=== PATIENT | female | born 1995 | race Caucasian/White ===

== ENCOUNTER 2024-05-04 17:34 | Emergency (ER) | payer BC, SELFPAY ==
[2024-05-04 17:35] VITALS: BP 137/85
--- NOTE | 2024-05-04 17:42 | ED.GENMED ---
ED Provider Triage
<Francisco Javier Ledesma PA-C - Last Filed: 05/04/24 17:44>
-
Patient seen by provider in Triage?: Seen in Triage
29-year-old female with 3 to 4 days worth of swelling in both sides of her neck that she noticed more so in the morning. She denies sore throat fever or shortness of breath. She denies difficulty swallowing.
On exam there is no obvious swelling noted on her neck at triage. Vital signs are stable.
Ordered basic labs. Patient received a medical screening exam by healthcare provider through triage
History of Present Illness
<Francisco Javier Ledesma PA-C - Last Filed: 05/04/24 17:44>
General
Chief Complaint: Throat Problem
Time Seen by Provider: 05/04/24 18:39
<ODILON Infante - Last Filed: 05/04/24 22:39>
General
Source: patient and other (Friend with patient)
Exam Limitations: none
History of Present Illness
History of Present Illness:
This is a 29 year old female that comes in with c/o neck swelling. States that for the past 3 days her neck is swelling. States that when she lays down her neck will swelling and when she gets up it take a couple hours for this to go away. States
that she laid down in bed again and the same thing happened. Friend with patient states that her Mom is a Oncologist/Account Manager Sales Representative and she was concerned that this could be a blood clot. States that she has had a headache and some diarrhea. Denies any
fever, chills, chest pain, SOB, abd pain, nausea, vomiting, dizziness, urinary burning.
Past History
<Francisco Javier Ledesma PA-C - Last Filed: 05/04/24 17:44>
Past History
ED Past Medical History: Other (Unknown.)
Social History
Alcohol: Daily
Personal: Single
Living: with roommate
Employment: Not employed
<ODILON Infante - Last Filed: 05/04/24 22:39>
Past History
ED Past Medical History: Psychiatric (Anxiety, Depression, Panic disorder, ) and Other (Developmental delays, )
ED Past Surgical History: Gynecological (. ) and Other (Cyst removed form abd. )
Social History
Tobacco: Vaping
Alcohol: Daily (Beer 3 )
Personal: Single
Living: with roommate
Employment: Not employed
Review of Systems
<ODILON Infante - Last Filed: 05/04/24 22:39>
Review of Systems
All Other Systems: ROS reviewed and negative except as documented in HPI and ROS
Constitutional: Reports no symptoms; Denies fever or chills
EENT: Reports no symptoms
Respiratory: Denies cough or trouble breathing
Cardiac: Reports no symptoms; Denies chest pain
ABD/GI: Reports diarrhea; Denies abdominal pain, nausea or vomiting
: Reports no symptoms; Denies dysuria, frequency or urgency
Musculoskeletal: Reports other (Neck swelling, )
Skin: Reports no symptoms
Neurological: Reports headache; Denies dizzy
Psychiatric: Reports no symptoms
Phy Exam
<ODILON Infante - Last Filed: 05/04/24 22:39>
General Physical Exam
General Presentation: well appearing and no apparent distress
General age: appears stated age
General Skin: warm and dry
General Habitus: normal
General Mental: alert
General Hydration: appears well hydrated
ENT Exam
ENT Exam: TM's normal, pharynx normal and neck supple
Eye Exam
Eye Exam: EOMI
Cardiovascular Exam
Cardiovascular Exam: regular rate/rhythm, no edema, no murmur and normal peripheral pulses
Pulmonary Exam
Pulmonary Exam: lungs clear, no respiratory distress, no rales, chest non tender, no crackles, no rhonchi, no wheezing and no cough
Gastrointestinal Exam
Gastrointestinal Exam: normal bowel sounds, non tender, soft, no organomegaly, no pulsatile mass and non distended
Musculoskeletal Exam
Musculoskeletal Exam: full ROM and no edema
Skin Exam
Skin Exam: normal color, warm/dry, no rash and no petechia
Psychiatric Exam
Psychiatric Exam: normal mood/affect
Course
<Francisco Javier Ledesma PA-C - Last Filed: 05/04/24 17:44>
Orders/Labs/Results
Orders:
Orders
05/04/24 18:09
Complete Blood Count/With Diff Urgent
Comprehensive Metabolic Panel Urgent
Free T4 Urgent
HCG, Serum Qualitative Screen Urgent
Comment: ADD ON
Monotest Urgent
Comment: ADD ON
TSH Reflex To Free T4 Urgent
05/04/24 18:41
Add On- LAB Urgent
Tests Added?: mONO
05/04/24 19:27
US Periph Venous UPPER Ext Phong Urgent
Comment:
Reason For Exam: Neck swelling, Right arm slightly larger then left
05/04/24 19:50
CT Head & Neck Angio W/wo IV Urgent
Comment:
Reason For Exam: Sweling of the neck, Headache,
05/04/24 20:00
Add On- LAB Urgent
Tests Added?: hcg qual
05/04/24 21:45
CR Chest - 2 Views Urgent
Comment:
Reason For Exam: Neck swelling
Abnormal Lab Results
05/04/24
18:09
MCHC 32.9 L g/dL
(33.0-37.0)
RDW 19.0 H %
(11.5-14.5)
Glucose 102 H mg/dl
(70-99)
TSH (Reflex) 6.19 H uIU/ml
(0.47-4.68)
05/04/24 18:09
05/04/24 18:09
Vital Signs
Initial and Last Documented VS:
Initial Vital Signs
Temp Pulse Resp BP Pulse Ox
97.4 F 99 16 137/85 100
05/04/24 17:35 05/04/24 17:35 05/04/24 17:35 05/04/24 17:35 05/04/24 17:35
Last Documented Vital Signs
Temp Pulse Resp BP Pulse Ox
98.0 F 103 20 131/84 98
05/04/24 18:00 05/04/24 18:00 05/04/24 18:00 05/04/24 18:00 05/04/24 18:00
<ODILON Infante - Last Filed: 05/04/24 22:39>
Orders/Labs/Results
Orders:
Orders
05/04/24 18:09
Complete Blood Count/With Diff Urgent
Comprehensive Metabolic Panel Urgent
Free T4 Urgent
HCG, Serum Qualitative Screen Urgent
Comment: ADD ON
Monotest Urgent
Comment: ADD ON
TSH Reflex To Free T4 Urgent
05/04/24 18:41
Add On- LAB Urgent
Tests Added?: mONO
05/04/24 19:27
US Periph Venous UPPER Ext Phong Urgent
Comment:
Reason For Exam: Neck swelling, Right arm slightly larger then left
05/04/24 19:50
CT Head & Neck Angio W/wo IV Urgent
Comment:
Reason For Exam: Sweling of the neck, Headache,
05/04/24 20:00
Add On- LAB Urgent
Tests Added?: hcg qual
05/04/24 21:45
CR Chest - 2 Views Urgent
Comment:
Reason For Exam: Neck swelling
Abnormal Lab Results
05/04/24
18:09
MCHC 32.9 L g/dL
(33.0-37.0)
RDW 19.0 H %
(11.5-14.5)
Glucose 102 H mg/dl
(70-99)
TSH (Reflex) 6.19 H uIU/ml
(0.47-4.68)
05/04/24 18:09
05/04/24 18:09
Glucose nonfasting. TSH elevated at 6.19
Vital Signs
Initial and Last Documented VS:
Initial Vital Signs
Temp Pulse Resp BP Pulse Ox
97.4 F 99 16 137/85 100
05/04/24 17:35 05/04/24 17:35 05/04/24 17:35 05/04/24 17:35 05/04/24 17:35
Last Documented Vital Signs
Temp Pulse Resp BP Pulse Ox
98.0 F 103 20 131/84 98
05/04/24 18:00 05/04/24 18:00 05/04/24 18:00 05/04/24 18:00 05/04/24 18:00
<ODILON Infante - Last Filed: 05/04/24 22:39>
MDM/Problems Addressed
Differential Diagnosis Includes:
Upper arms DVT, Obstructive mass throat
MDM/Problems Addressed:
This is a 29 year old female that comes in with c/o swelling in the neck. States that when she lays down and then gets up her neck is swollen and this takes a few hours to go down and if she lays down again the swelling comes back. States that this
started 3 days ago.
Will check labs. CT neck and get Ultrasound bilateral upper arms.
Back into see patient and significant other. Significant others mother was also on the phone who is a retired Account Manager Sales Representative/Oncologist. Explained that her blood work is normal. There is some mild reversal of the Cervical lordosis that can be seen
with Muscle spasm and the CTA of the head and neck was negative for any acute process. There is bilateral few small lymphadenopathy. Will get Chest x-ray. If normal will discharge home.
Chronic conditions affecting care:
NA
Acute Exacerbation and/or Progression of Chronic Illness:
NA
<ODILON Infante - Last Filed: 05/04/24 22:39>
*Radiology
Radiology exam reviewed: radiology read reviewed (Head and neck CTA-NO acute intracranial pathology. NO acute pathology of the vasculature. Mild reversal of the normal cervical spinal lordosis. This can be seen with Muscular spasm. US bilateral
arms-No evidence of DVT of either upper extremitly. Bilateral neck Lymphadenopathy. ) and other (Chest- No acute disease of the chest. Minimal mild thoracic spine dextroscoliosis. )
*Pulse Oximetry
Patient hypoxic: no
*EKG
Interpreted by ED Provider?: NA
Rate: EKG- N/A
*Molded Goods Controls Operator Interpretation
Rate: Molded Goods Controls Operator- N/A
*Critical Care Note
Total Time (30-74mins, 75-104mins- exclusive of procedures): Not Applicable
ED Attending Note
<Francisco Javier Ledesma PA-C - Last Filed: 05/04/24 17:44>
-
Portions of this chart may have been created with voice recognition software.� Occasional wrong word or��sound alike� substitutions may have occurred due to the inherent limitations of voice recognition software.
Discharge Plan
Departure
Patient Disposition: Home (Routine Discharge)
Date of Disposition: 05/04/24
Time of Disposition: 22:34
Patient with high blood pressure during this ER visit?: Yes
Condition: Good
Covid-19: Not Applicable
Discharge Problem:
Neck swelling
Instructions: BLOOD PRESSURE
Prescriptions:
No Action
topiramate 25 MG tablet
50 mg PO DAILY Qty: 60 0RF
fluoxetine 10 MG capsule
10 mg PO DAILY Qty: 30 0RF
gabapentin 300 MG capsule
300 mg PO BID Qty: 60 0RF
topiramate 100 MG tablet
100 mg PO HS Qty: 30 0RF
olanzapine 5 MG tablet,disintegrating
10 mg PO HS Qty: 30 0RF
Referrals:
UNKNOWN - PT DOES,NOT KNOW [Family Provider] -
Activity Restrictions/Additional Instructions:
As discussed, your blood work is normal. Your CT shows bilateral neck lymphadenopathy that is felt to be reactive. There is some wall thickening of the sinus to suggest chronic sinusitis. The ultrasound of both arms is normal. There is a mild
cervical lordosis which can be seen with muscle spasm. Please follow up with the family doctor for further evaluation. Your Chest x-ray is normal. IF YOU HAVE DIFFICULTY SWALLOWING OR YOU HAVE ANY OTHER CONCERNS PLEASE RETURN TO THE EMERGENCY ROOM
Interventions
Interventions:
*Risk Screen - Suicide Last Done: 05/04/24 17:35
*General Assessment Last Done: 05/04/24 17:35
*ED COVID-19 Vaccine History Last Done: 05/04/24 17:35
ED-EENT Assessment Last Done: 05/04/24 18:30
ED- Pulmonary Assessment Last Done: 05/04/24 18:30
Discharge Date and Time
Print Language: MALAY
[2024-05-04 18:00] VITALS: BP 131/84
[2024-05-04 18:20] LABS: % Basophils 0.7 % (0-2); % Eosinophils 2.1 % (0-6); % Immature Granulocytes 0.2 % (0-0.5); % Lymphocytes 24.4 % (20.5-51.1); % Monocytes 5.8 % (1.7-9.3); % Neutrophils 66.8 % (42.2-75.2); Absolute Basophils 0.1 10^3/uL (0-0.2); Absolute Eosinophils 0.2 10^3/uL (0-0.7); Absolute Lymphocytes 2.3 10^3/uL (1.2-3.4); Absolute Monocytes 0.6 10^3/uL (0.1-0.6); Absolute Neutrophils 6.4 10^3/uL (1.4-6.5); Hemoglobin 12.5 g/dL (12.0-16.0); Mean Corp Hgb Conc. 32.9 g/dL (33.0-37.0); Mean Corpuscular Hgb 28.3 pg (27.0-31.0); Mean Platelet Volume 9.8 fL (7.4-10.4); Nucleated Red Blood Cells % 0 %; Platelet Count 330 10^3/uL (130-400); Red Blood Cell Count 4.42 10^6/uL (4.20-5.40); White Blood Cell Count 9.6 10^3/uL (4.8-10.8)
[2024-05-04 18:32] LABS: ALT (SGPT) 31 U/L (0-35); AST (SGOT) 31 U/L (14-36); Albumin 4.5 g/dl (3.5-5.0); Alkaline Phosphatase 58 U/L (38-126); Blood Urea Nitrogen 12 mg/dl (7-17); Calcium 9.6 mg/dl (8.4-10.2); Carbon Dioxide 23 mmol/L (22-30); Chloride 107 mmol/L (98-107); Glucose 102 mg/dl (70-99); Potassium 4.4 mmol/L (3.5-5.1); Sodium 141 mmol/L (135-145); Total Bilirubin 0.2 mg/dl (0.2-1.3); Total Protein 7.5 g/dl (6.3-8.2); eGFR > 60.00
[2024-05-04 19:04] LABS: TSH Reflex To Free T4 6.19 uIU/ml (0.47-4.68)
[2024-05-04 19:28] LABS: Monotest Negative (Negative)
[2024-05-04 19:54] LABS: Free T4 0.91 ng/dl (0.78-2.19)
[2024-05-04 20:45] LABS: HCG, Serum Qualitative Screen Negative
[2024-05-04 22:46] VITALS: BP 126/78
== END 2024-05-04 22:46 | disposition home or self-care (01) ==
LOC: EMR 17:34
PROVIDERS: Physician Assistant; EMERGENCY PHYSICIAN Emergency Medicine
DX: R22.1 Localized swelling, mass and lump, neck (principal); F17.290 Nicotine dependence, other tobacco product, uncomplicated
CPT/HCPCS: 99284; 70496; 70498; 71046; 80053; 84439; 84443; 84703; 85025; 86308; 93970; Q9967

== ENCOUNTER 2025-04-01 15:31 | Emergency (ER) | payer BC, SELFPAY ==
[2025-04-01 15:33] VITALS: BP 136/90
--- NOTE | 2025-04-01 20:08 | ED.SKININJ ---
HPI-Injury
General
Chief Complaint: Eye Problems
Source: patient
Exam Limitations: none
Time Seen by Provider: 04/01/25 19:51
History of Present Illness-Injury
Initial Injury comments:
29-year-old female presents with intermittent swelling to the periorbital area of the right eye that is been going on for about 2 weeks. It is associated with pain. She tried cold compresses. She notes a headache with this as well. She denies
any double vision or blurry vision. No fevers. No nausea or vomiting. No other complaints at this time
Past History
Past History
ED Past Medical History: Psychiatric (Anxiety, Depression, Panic disorder, ) and Other (Developmental delays, )
ED Past Surgical History: Gynecological (. ) and Other (Cyst removed form abd. )
Social History
Tobacco: Vaping
Alcohol: Daily (Beer 3 )
Personal: Single
Living: with roommate
Employment: Not employed
Phy Exam
Physical Exam
Physical Exam:
General: Well-appearing female no acute respiratory distress
HEENT normal cephalic pupils equal round reactive to light there is periorbital swelling of the right eye mainly superiorly and into the forehead on the right side no ptosis
Heart: Regular rate and rhythm
Lungs: Clear no wheeze
Skin: Subtle erythema to the right side of the forehead
Course
Orders/Labs/Results
Orders:
Orders
04/01/25 20:06
CT Orbits With Iv Contrast Urgent
Comment:
Reason For Exam: periorbital swelling right eye
04/01/25 20:24
Complete Blood Count/With Diff Urgent
Comprehensive Metabolic Panel Urgent
HCG, Serum Qualitative Screen Urgent
Comment: ADD ON
04/01/25 20:47
Add On- LAB Urgent
Tests Added?: hcg
Abnormal Lab Results
04/01/25
20:24
RBC 3.43 L 10^6/uL
(4.20-5.40)
Hgb 8.7 L g/dL
(12.0-16.0)
Hct 27.8 L %
(37.0-47.0)
MCH 25.4 L pg
(27.0-31.0)
MCHC 31.3 L g/dL
(33.0-37.0)
RDW 15.2 H %
(11.5-14.5)
Absolute Neuts (auto) 7.0 H 10^3/uL
(1.4-6.5)
Chloride 108 H mmol/L
(98-107)
Glucose 113 H mg/dl
(70-99)
AST 69 H U/L
(14-36)
ALT 75 H U/L
(0-35)
04/01/25 20:24
04/01/25 20:24
Vital Signs
Initial and Last Documented VS:
Initial Vital Signs
Temp Pulse Resp BP Pulse Ox
98.9 F 110 18 136/90 18
04/01/25 15:33 04/01/25 15:33 04/01/25 15:33 04/01/25 15:33 04/01/25 15:33
Last Documented Vital Signs
Temp Pulse Resp BP Pulse Ox
98.9 F 92 18 120/84 99
04/01/25 15:33 04/01/25 20:25 04/01/25 20:25 04/01/25 20:25 04/01/25 20:25
MDM/Problems Addressed
Differential Diagnosis Includes:
Periorbital swelling of the right eye. Consider stye or cellulitis versus septal cellulitis. No rash to suggest shingles.
Will check labs and CT.
*Pulse Oximetry
SaO2: 18
Patient hypoxic: no
*Critical Care Note
Total Time (30-74mins, 75-104mins- exclusive of procedures): Not Applicable
Update Note
Update Note:
CT of the orbits was reviewed and demonstrates dilation of the superior ophthalmic vein with surrounding inflammatory changes etiology unclear by CT. MRI versus MRA recommended for further detail. Discussed these findings with the patient and
offered admission for further investigation however she does not want to stay in the hospital. She states her symptoms been going on for 2 months she would rather follow-up with her family doctor. Think this is reasonable. Given the erythema and
swelling and some tenderness will cover for cellulitis. Will start on Keflex and have her apply warm compresses. Return precautions were given.
ED Attending Note
-
Portions of this chart may have been created with voice recognition software.� Occasional wrong word or��sound alike� substitutions may have occurred due to the inherent limitations of voice recognition software.
Discharge Plan
Departure
Patient Disposition: Home (Routine Discharge)
Date of Disposition: 04/01/25
Time of Disposition: 23:13
Patient with high blood pressure during this ER visit?: No
Discharge Problem:
Periorbital swelling
Instructions: Cellulitis around the eye
Prescriptions:
New
cephalexin 500 mg capsule
500 mg PO Q8H 7 Days Qty: 21 0RF
No Action
topiramate 25 MG tablet
50 mg PO DAILY Qty: 60 0RF
fluoxetine 10 MG capsule
10 mg PO DAILY Qty: 30 0RF
gabapentin 300 MG capsule
300 mg PO BID Qty: 60 0RF
topiramate 100 MG tablet
100 mg PO HS Qty: 30 0RF
olanzapine 5 MG tablet,disintegrating
10 mg PO HS Qty: 30 0RF
Referrals:
UNKNOWN - PT DOES,NOT KNOW [Family Provider]
Activity Restrictions/Additional Instructions:
Use warm compresses to the area. Use antibiotic as directed. Please follow-up with your doctor for further evaluation as discussed.
Interventions
Interventions:
*Risk Screen - Suicide Last Done: 04/01/25 15:33
*General Assessment Last Done: 04/01/25 15:33
*ED- Fall Risk Assessment Last Done: 04/01/25 15:33
*ED COVID-19 Vaccine History Last Done: 04/01/25 15:33
*ED Influenza Vaccine History Last Done: 04/01/25 15:33
Discharge Date and Time
Print Language: BARBADIAN
[2025-04-01 20:25] VITALS: BP 120/84
[2025-04-01 20:31] LABS: Hematocrit 27.8 % (37.0-47.0); Hemoglobin 8.7 g/dL (12.0-16.0); Mean Corp Hgb Conc. 31.3 g/dL (33.0-37.0); Mean Corpuscular Volume 81.0 fL (81.0-99.0); Nucleated Red Blood Cells % 0 %; Platelet Count 381 10^3/uL (130-400); Red Cell Dist. Width 15.2 % (11.5-14.5)
[2025-04-01 20:52] LABS: ALT (SGPT) 75 U/L (0-35); AST (SGOT) 69 U/L (14-36); Albumin 4.3 g/dl (3.5-5.0); Alkaline Phosphatase 85 U/L (38-126); Blood Urea Nitrogen 9 mg/dl (7-17); Calcium 8.9 mg/dl (8.4-10.2); Carbon Dioxide 23 mmol/L (22-30); Chloride 108 mmol/L (98-107); Glucose 113 mg/dl (70-99); Potassium 4.0 mmol/L (3.5-5.1); Sodium 137 mmol/L (135-145); Total Protein 7.2 g/dl (6.3-8.2); eGFR > 60.00
[2025-04-01 20:59] LABS: HCG, Serum Qualitative Screen Negative
[2025-04-01 23:21] VITALS: BP 147/84
== END 2025-04-01 23:22 | disposition home or self-care (01) ==
LOC: EMR 15:31
PROVIDERS: Physician Assistant; EMERGENCY PHYSICIAN Emergency Medicine
DX: R22.0 Localized swelling, mass and lump, head (principal); R51.9 Headache, unspecified; F17.290 Nicotine dependence, other tobacco product, uncomplicated
CPT/HCPCS: 99284; 70481; 80053; 84703; 85025; Q9967